=== PATIENT | female | born 1965 ===

== ENCOUNTER 2022-09-28 10:25 | Inpatient (IN) | payer OTHER ==
[~2022-09-28] VITALS: Ht 157.5 cm; Wt 49.0 kg
[2022-10-01] MEDS ORDERED: HORIZANT300 MG (11:08)
[2022-10-01] MEDS ORDERED: RELAF PO (11:09)
[2022-10-01] MEDS ORDERED: [UNRECOGNIZED DRUG - OTHER] PO (11:10)
[2022-10-01] MEDS ORDERED: VIVLODEX10 MG PO (11:10)
[2022-10-01] MEDS ORDERED: RELAF (11:10)
[2022-10-01] MEDS ORDERED: PROTONIX40 M1 PO (11:11)
[2022-10-01] MEDS ORDERED: PEPCID AC20 MG PO (11:11)
[2022-10-08] MEDS ORDERED: CELECOXIB200 MG (08:22)
[2022-10-08] MEDS ORDERED: GABAPENTIN300 M2 (08:22)
[2022-10-08] MEDS ORDERED: MELOXICAM15 MG (08:23)
[2022-10-08] MEDS ORDERED: TIZANIDINE HCL4 MG (08:23)
[2022-10-08] MEDS ORDERED: NABUMETONE750 MG (08:24)
== END 2022-10-10 14:39 | disposition home or self-care (01) | DRG 331 ==
LOC: O/R 10-08 05:30 → SURH 10-08 05:30 → SURG 10-08 07:00 → SURH 10-08 13:23
PROVIDERS: ADMIT Colon & Rectal Surgery; ATTEND Colon & Rectal Surgery
PROC: 0DBP4ZZ Excision of Rectum, Percutaneous Endoscopic Approach (ICD-10-PCS; 2022-10-08)
PROC: 0DJD8ZZ Inspection of Lower Intestinal Tract, Via Natural or Artificial Opening Endoscopic (ICD-10-PCS; 2022-10-08)
PROC: 0DTN4ZZ Resection of Sigmoid Colon, Percutaneous Endoscopic Approach (ICD-10-PCS; principal; 2022-10-08 07:00)
DX: K57.32 Diverticulitis of large intestine without perforation or abscess without bleeding (principal); R10.32 Left lower quadrant pain; Z20.822 Contact with and (suspected) exposure to COVID-19

== ENCOUNTER 2022-10-03 09:09 | Day surgery (SDC) | payer OTHER ==
[~2022-10-03 09:09] MED LIST: HORIZANT300 MG; PEPCID AC20 MG PO; PROTONIX40 M1 PO; RELAF; RELAF PO; VIVLODEX10 MG PO; [UNRECOGNIZED DRUG - OTHER] PO
== END 2022-10-03 16:10 | disposition home or self-care (01) ==
LOC: AMB-ENDOS 09:09
PROVIDERS: ATTEND Colon & Rectal Surgery
DX: K57.30 Diverticulosis of large intestine without perforation or abscess without bleeding (principal); K57.32 Diverticulitis of large intestine without perforation or abscess without bleeding; K63.89 Other specified diseases of intestine; K64.8 Other hemorrhoids; Z20.822 Contact with and (suspected) exposure to COVID-19; Z88.6 Allergy status to analgesic agent